=== PATIENT | female | born 1985 | race Two or more races ===

== ENCOUNTER 2024-10-20 10:55 | Day surgery (SDC) | payer BC, SELFPAY ==
[2024-10-19 15:30] VITALS: BMI 29.7
[2024-10-20] VITALS (13 sets, daily range): BP systolic 112–138; BP diastolic 85–98; PULSE 80–121; RESP 15–25; TEMP 36.2–36.7; O2SAT 95–100; BMI 29.2
[2024-10-20] MEDS: SODIUM CHLORIDE 0.9% 500 ML 500 ML 20 ML IV (11:50)
[2024-10-20] MEDS: fentaNYL CIT INJ 50 mCg/ML AMP 2ML (ASD USE ONLY) IV ×2 (11:58→12:15)
[2024-10-20] MEDS: MIDAZOLAM INJ 1 MG/ML VIAL 2 ML (ASD USE ONLY) 2 MG IV ×2 (11:58→12:15)
[2024-10-20] MEDS: DiphenhydrAMINE INJ 50 MG/ML VIAL 25 MG IV (12:00)
--- NOTE | 2024-10-20 12:33 | SUR.PHASEII ---
PATEINT INTO RECOVERY WITH NO ACUTE DISTRESS NOTED, V/S STABLE, NO COMPLAINTS OF PAIN OR NAUSEA AT THIS TIME. PATIENT REPOSITIONS SELF FOR COMFORT. PATIENT PASSING FLATUS. REPORT RECEIVED FROM MINA FOX
--- NOTE | 2024-10-20 13:15 | SUR.PHASEII ---
SPEAKING WITH PATIENT AND PATIENT'S BOYFRIEND AMIE. ANSWERS ALL QUESTIONS ASKED REGARDING PROCEDURE AND FINDINGS.
--- NOTE | 2024-10-20 13:25 | SUR.PHASEII ---
PATIENT AND PATIENT'S BOYFRIEND ONTAREO VERBALIZE UNDERSTANDING OF DISCHARGE INSTRUCTIONS. PATIENT DISCHARGED.
== END 2024-10-20 13:25 | disposition home or self-care (01) ==
PROVIDERS: PCP Family Medicine; Referring Provider Internal Medicine Gastroenterology; Visit Provider Internal Medicine Gastroenterology
PROC: 0DBE8ZX Excision of Large Intestine, Via Natural or Artificial Opening Endoscopic, Diagnostic (ICD-10-PCS; CPT 45380; principal; 2024-10-20 10:30)
DX: D12.5 Benign neoplasm of sigmoid colon (principal); K64.9 Unspecified hemorrhoids
CPT/HCPCS: 45385; 45380; 81025; A4649; J1200; J2250; J3010; J7040